=== PATIENT | male | born 1970 | race Two or more races ===

== ENCOUNTER 2018-11-06 21:57 | Emergency (ER) | payer MEDICARE ==
[2018-11-06 22:06] VITALS: BP 150/76
[2018-11-06] MEDS ORDERED: DIPHENHYDRAMINE HCL 50 MG/ML VIAL IV ONE (23:00)
--- NOTE | 2018-11-06 23:40 | ER Document Report ---
HPI - HPI Patient complains to provider of: rash Time Seen by Provider: 11/06/18 22:16 Pain Level: Denies Context: Patient is a 48-year-old male presents to the emergency department for generalized itching and hives. Patient states he has multiple medication allergies. States he lives in a residential currently and this evening was experiencing some generalized itching which is why he presents to the emergency room. Patient's denying any respiratory distress, vomiting, tightness or swelling in his throat or neck. Past medical history: Hypertension, Diabetes Medications: Diltiazem, ranitidine, losartan, hydralazine, glipizide Allergies: Aspirin, diphenhydramine, lisinopril, metformin Past Medical History - General Information source: Patient - Social History Smoking Status: Unknown if Ever Smoked Family History: Reviewed & Not Pertinent Patient has suicidal ideation: No Patient has homicidal ideation: No - Past Medical History Cardiac Medical History: Reports: Hx Hypercholesterolemia, Hx Hypertension Endocrine Medical History: Reports: Hx Diabetes Mellitus Type 2 Renal/ Medical History: Denies: Hx Peritoneal Dialysis Vertical Provider Document - CONSTITUTIONAL Agree With Documented VS: Yes Notes: GENERAL: Alert, interacts well. No acute distress. HEAD: Normocephalic, atraumatic. EYES: Pupils equal, round, and reactive to light. Extraocular movements intact. ENT: Oral mucosa moist, tongue midline. NECK: Full range of motion. Supple. Trachea midline. LUNGS: Clear to auscultation bilaterally, no wheezes, rales, or rhonchi. No respiratory distress. HEART: Regular rate and rhythm. No murmur ABDOMEN: Soft, non-tender. Non-distended. Bowel sounds present in all 4 quadrants. EXTREMITIES: Moves all 4 extremities spontaneously. No edema, normal radial and dorsalis pedis pulses bilaterally. No cyanosis. BACK: no cervical, thoracic, lumbar midline tenderness. No saddle anesthesia, normal distal neurovascular exam. NEUROLOGICAL: Alert and oriented x3. Normal speech. cranial nerves II through XII grossly intact PSYCH: Normal affect, normal mood. SKIN: Warm, dry, normal turgor. 2 small hives noted left lower distal extremity, minor surrounding erythema. - INFECTION CONTROL TRAVEL OUTSIDE OF THE [place] IN LAST 30 DAYS: No Course - Re-evaluation Re-evalutation: 11/06/18 23:37 Patient voices that he is allergic to the pill form of Benadryl. States there is something with the dye in the pill form he typically breaks out in a rash. He is requesting IV Benadryl at this time. Patient states he was treated for a positive area due to his constant itching. States those test came back negative and his primary care provider placed him on ranitidine and hydralazine. He states they are "not working." Patient does have slight erythema and 2 hives noted to the distal aspect of his left lower extremity but otherwise skin is unremarkable. Patient has been treated in the emergency department with IV Benadryl. He is requesting a check of his blood sugar because he states he is unsure of where he placed his diabetic medications. States he lives in a residential and believes they are all still at the residential. Patient's blood sugar glucose was 150. Patient stable for discharge - Vital Signs Vital signs: Temp Pulse Resp BP Pulse Ox 98.1 F 72 18 150/76 H 96 11/06/18 22:04 11/06/18 22:04 11/06/18 22:04 11/06/18 22:04 11/06/18 22:04 - Laboratory Laboratory results interpreted by me: 11/06/18 23:07 POC Glucose 150 H Discharge - Discharge Clinical Impression: Urticaria Condition: Stable Disposition: HOME, SELF-CARE Instructions: Acute Urticaria ([facility]) Additional Instructions: As we discussed you have been seen and treated in the emerge for itchiness. As you say you are unable to take the pill form of Benadryl. Please make sure you continue to use your prescribed ranitidine and hydralazine for itching. Please also make sure you follow-up with your primary care provider for continued care. Please return to the emergency department should you have any respiratory distress or any other concerning symptoms
== END 2018-11-06 23:56 | disposition home or self-care (01) ==
LOC: ER 21:57
DX: L50.9 Urticaria, unspecified (principal); R21 Rash and other nonspecific skin eruption; I10 Essential (primary) hypertension; E11.9 Type 2 diabetes mellitus without complications; Z79.899 Other long term (current) drug therapy
CPT/HCPCS: 99283; 96374; 82962; J1200